=== PATIENT | male | born 1975 | race African-American/Black ===

== ENCOUNTER 2017-11-10 20:46 | Emergency (ER) | payer MEDICAID ==
[~2017-11-10] VITALS: Ht 185.4 cm; Wt 117.9 kg
[2017-11-10 21:41] VITALS: BP 138/84
[2017-11-10 22:35] LABS: Basophils # (auto) 0.1 uL; Eosinophils # (auto) 0.2 uL; Eosinophils % (auto) 1.9 % (0.0-7.0); Hemoglobin 14.7 g/dL (13.5-17.5); Lymphocytes % (auto) 34.4 % (10.0-50.0); Mean Corpuscular Hemoglobin 30.9 pg (28.0-32.0); Mean Corpuscular Hgb Conc. 33.4 g/dL (32.0-36.0); Mean Corpuscular Volume 92.4 fL (80.0-100.0); Monocytes # (auto) 0.6 uL; Monocytes % (auto) 6.4 % (0.0-12.0); Neutrophils # (auto) 4.9 uL; Neutrophils % (auto) 56.3 % (37.0-80.0); Nucleated Red Blood Cells % 0.1 %; Platelet Count (auto) 248 10^3/uL (140-450); Red Blood Cells 4.77 10^6/uL (4.5-5.90); Red Cell Distribution Width 14.6 % (11.8-14.3); White Blood Cell 8.7 10^3/uL (4.4-10.8)
[2017-11-10 22:50] LABS: Albumin 3.8 g/dL (3.4-5.0); BUN/Creatinine Ratio 7.3; Calcium 8.6 mg/dL (8.5-10.1)
[2017-11-10 22:56] LABS: Bilirubin, Total 0.2 mg/dL (0.2-1.0); Total Protein 6.6 g/dL (6.4-8.2); Uric Acid 4.5 mg/dL (3.5-7.2)
== END 2017-11-10 23:13 | disposition home or self-care (01) ==
LOC: ER 20:46
DX: M67.431 Ganglion, right wrist (principal)
CPT/HCPCS: 10160; 36415; 73080; 73110; 80053; 84550; 85025

== ENCOUNTER 2018-03-10 10:58 | Emergency (ER) | payer MEDICAID, OTHER ==
[~2018-03-10] VITALS: Ht 185.4 cm; Wt 108.0 kg
[2018-03-10] MEDS ORDERED: LORazepam 0.5 MG TAB PO ONE (12:15)
[2018-03-10] MEDS ORDERED: ASPirin 81 mg TAB PO ONE (12:15)
[2018-03-10 13:20] VITALS: BP 118/76
== END 2018-03-10 13:35 | disposition home or self-care (01) ==
LOC: ER 10:58
DX: R07.89 Other chest pain (principal); R11.0 Nausea; R51 Headache; M79.602 Pain in left arm
CPT/HCPCS: 36415; 70450; 71046; 84484; 93005; 96372